=== PATIENT | male | born 1995 | race Caucasian/White ===

== ENCOUNTER 2021-09-30 08:56 | Emergency (ER) | payer SELFPAY ==
--- NOTE | 2021-09-30 09:00 | ED.DENTAL ---
HPI - Dental/Oral General Chief complaint: Dental/Oral Stated complaint: sore gums Time Seen by Provider: 09/30/21 09:00 Source: patient and RN notes reviewed History of Present Illness HPI Narrative: Patient is a 25-year-old male who presents the urgent care with complaints of sore bottom frontal gums. Patient states that he does have a tooth on the lower gums and he knew eventually he would need a root canal . Patient states that it was damaged years ago. Patient has not followed up recently with his dentist. States he has never had issues with gingivitis in the past. States that it started on Wednesday. Patient has been taking Tylenol for the pain. No other acute complaints. No acute distress noted. Patient aware of the plan of care. Some parts of this dictation were generated by voice recognition software and may contain typographical and/or grammatical inaccuracies. Related Data Allergies Allergy/AdvReac Type Severity Reaction Status Date / Time No Known Allergies Allergy Verified 09/30/21 09:15 Review of Systems Review of Systems: CONSTITUTIONAL: Denies fever, chills, or sweats. EYES: Denies visual changes, redness, or discharge. ENT: Denies rhinorrhea, congestion, sore throat, or otalgia. Reports of lower gum pain CARDIOVASCULAR: Denies chest pain, palpitations, or edema. RESPIRATORY: Denies cough or dyspnea. GASTROINTESTINAL: Denies abdominal pain, nausea, vomiting, or diarrhea. GENITOURINARY: Denies dysuria or hematuria. SKIN: Denies rash or itching. MUSCULOSKELETAL: Denies back pain, joint pain, or myalgia. NEUROLOGIC: Denies headache, numbness, or weakness. All other systems reviewed are negative, except as documented in HPI. PMFSH Comments At the time of my signature, I reviewed and agree with the nursing past medical, surgical, social, and family history. There is no relevant family history pertinent to the patient complaint. Exam Narrative: GENERAL: This is a well-nourished, well-developed patient, in no apparent distress. HEAD: normocephalic, atraumatic. EYES: PERRL. Sclera clear/white. Vision is grossly intact. EARS: External ears normal NOSE: External nose normal with no obvious nasal discharge, nares without redness, no rhinorrhea. THROAT: Mucous membranes moist, posterior pharynx clear. NECK: Neck supple DENTAL: Damage/discolored lower central incisor. Gingivitis/inflammation/erythema of the lower gumline extending from tooth #11 to tooth #6 CARDIOVASCULAR: Regular rate and rhythm without murmurs, gallops, or rubs. RESPIRATORY: Clear to auscultation. Breath sounds equal bilaterally. No wheezes, rales, or rhonchi. SKIN: warm, intact with no suspicious lesions or rash, good texture and turgor. NEURO: awake, alert, and oriented to person, place and time. There were no obvious focal neurologic abnormalities. EXTREMITIES: No clubbing, cyanosis, or edema. Course Course Level of Care: Express Care Visit Vital Signs Vital signs: Vital Signs Temperature 98.4 F 09/30/21 09:12 Pulse Rate 62 09/30/21 09:12 Respiratory Rate 16 09/30/21 09:12 Blood Pressure 133/69 09/30/21 09:12 Pulse Oximetry 100 09/30/21 09:12 Temperature 98.4 F 09/30/21 09:12 Pulse Rate 62 09/30/21 09:12 Respiratory Rate 16 09/30/21 09:12 Blood Pressure 133/69 09/30/21 09:12 Pulse Oximetry 100 09/30/21 09:12 Reviewed MDM - Dental/Oral MDM Narrative Medical decision making narrative: Advised the patient to complete the oral antibiotic regimen as prescribed. Be sure to eat and drink with medication. Use a soft bristle brush to the bottom until the infection is cleared. It is most important to use the mouthwash as directed. If you develop any increase in symptoms associated with increased inflammation, pain, fever, nausea or vomiting?go to the emergency room. Follow-up with your dentist within 2 to 5 days or for worsening symptoms or failure to improve. Differential Diagnosis Differential [email or web address]
[2021-09-30 09:12] VITALS: BP 133/69; PULSE 62; RESP 16; TEMP 36.9; O2SAT 100
[2021-09-30 09:23] VITALS: BP 133/69; PULSE 62; RESP 16; TEMP 36.9; O2SAT 100
== END 2021-09-30 09:35 | disposition home or self-care (01) ==
PROVIDERS: Emergency Provider Nurse Practitioner Family
DX: K05.10 Chronic gingivitis, plaque induced (principal)
CPT/HCPCS: 99213; G0463